=== PATIENT | male | born 1955 | race Caucasian/White ===

== ENCOUNTER 2022-05-23 05:11 | Day surgery (SDC) | payer MEDICARE, OTHER ==
[2022-05-16 16:33] LABS: BASOPHILS # (AUTO) 0.1 X10'3 (0-0.2); BASOPHILS % (AUTO) 0.8 % (0-1); EOSINOPHILS # (AUTO) 0.3 X10'3 (0-0.9); EOSINOPHILS % (AUTO) 5.4 % (0-6); LYMPHOCYTES # (AUTO) 1.9 X10'3 (1.1-4.8); MEAN CORPUSCULAR HEMOGLOBIN 30.2 PG (27.0-31.0); MEAN CORPUSCULAR HGB CONC 33.5 g/dL (33.0-36.5); MEAN CORPUSCULAR VOLUME 90.1 FL (78-98); MEAN PLATELET VOLUME 9.8 FL (7.4-10.4); MONOCYTES # (AUTO) 0.6 X10'3 (0-0.9); MONOCYTES % (AUTO) 9.5 % (2-12); NEUTROPHILS # (AUTO) 3.4 X10'3 (1.8-7.7); NEUTROPHILS % (AUTO) 54.3 % (42-75); PRE OP HEMOGLOBIN 16.4 g/dL (14.0-17.9); PRE OP PLATELET COUNT 228 X10'3 (140-440); RED BLOOD COUNT 5.44 X10'6 (4.70-6.10); RED CELL DISTRIBUTION WIDTH 13.7 % (11.5-14.5)
[2022-05-16 16:49] LABS: ALBUMIN 4.1 G/DL (3.4-5.0); ALBUMIN/GLOBULIN RATIO 1.1 (1.1-1.5); ALKALINE PHOSPHATASE 77 IU/L (46-116); BLOOD UREA NITROGEN 19 MG/DL (7-18); BUN/CREATININE RATIO 18.3 (5.4-32.0); CALCIUM 8.9 MG/DL (8.5-10.1); CHLORIDE 103 MMOL/L (99-107); CREATININE 1.04 MG/DL (0.60-1.10); PRE OP ALT 33 U/L (30-65); PRE OP ANION GAP 8 (8-16); PRE OP AST 18 U/L (10-37); PRE OP BILIRUB, TOTAL 0.2 MG/DL (0.0-1.0); PRE OP GLUCOSE 97 MG/DL (70-104); PRE OP SODIUM 139 MMOL/L (135-145); TOTAL CARBON DIOXIDE 28.4 MMOL/L (24-32); TOTAL PROTEIN 7.7 G/DL (6.4-8.2); eGFR 71 ML/MIN
[2022-05-23] VITALS (18 sets, daily range): BP systolic 90–140; BP diastolic 43–85
[~2022-05-23] VITALS: Ht 177.8 cm; Wt 80.5 kg
[~2022-05-23 05:11] MED LIST: IBUP-1985 PO
[2022-05-23] MEDS ORDERED: vancomycin 1,500 MG in NS 300ml IV soln IV ONE (05:30)
[2022-05-23] MEDS ORDERED: acetaminophen 325mg tablet PO ONE (05:30)
[2022-05-23] MEDS ORDERED: metoclopramide 5 mg/ml inj IV ONE (05:30)
[2022-05-23] MEDS ORDERED: oxyCODONE SR 10mg (sust. release) tab -2 tabs (20mg) PO ONE (05:30)
[2022-05-23] MEDS ORDERED: gabapentin 300mg capsule PO ONE (05:30)
[2022-05-23] MEDS ORDERED: tranexamic acid inj. 1,000 MG in normal saline IV soln 100ML IV ONE (05:30)
[2022-05-23] MEDS ORDERED: celeCOXIB 100mg capsule PO ONE (05:30)
[2022-05-23] MEDS ORDERED: famotidine 20mg tablet PO ONE (05:30)
--- NOTE | 2022-05-23 05:30 | NUR ---
PEDAL PULSES PRESENT AND MARKED. MUPIROCIN CREAM WAS NOT ORDERED FOR THIS PATIENT. PATIENT DID NOT WATCH THE VIDEO. EDUCATED PATIENT ON THE USE OF THE INCENTIVE SPIROMETER AND ITS IMPORTANCE.
[2022-05-23] MEDS: ringers solution, lacted 1,000 ML IV SCH ×2 (06:10→10:42)
[2022-05-23] MEDS ORDERED: ondansetron/PF 4mg/2ml inj IV PRN ×2 (06:25→07:15)
[2022-05-23] MEDS ORDERED: diphenhydrAMINE 25mg capsule PO PRN ×2 (06:25)
[2022-05-23] MEDS ORDERED: HYDROcodone/acetaminophen 10/325mg tab PO PRN (06:25)
[2022-05-23] MEDS ORDERED: naloxone 0.4 mg/ml inj IV PRN (06:25)
[2022-05-23] MEDS ORDERED: bisacodyl 10mg suppository rectal RC PRN (06:25)
[2022-05-23] MEDS ORDERED: magnesium hydroxide 30ml (MOM) UD suspension PO PRN (06:25)
[2022-05-23] MEDS ORDERED: HYDROmorphone 1 mg/ml syringe IV PRN (06:25)
[2022-05-23] MEDS ORDERED: HYDROmorphone inj. 0.5 MG/0.5 ML DISP.SYRIN IV PRN (06:25)
[2022-05-23] MEDS ORDERED: acetaminophen 325mg tablet PO PRN (06:25)
[2022-05-23] MEDS ORDERED: cefazolin/dext.iso 2gm/100ml BAG IV ONE (07:13)
[2022-05-23] MEDS ORDERED: ROPIVAcaine 0.2%/PF PUMP/bolus 545 ML ADDCANAL SCH (07:15)
[2022-05-23] MEDS ORDERED: ringers solution, lacted 1,000 ML IV SCH (07:15)
[2022-05-23] MEDS ORDERED: HYDROmorphone/PF 0.2 MG/ML SYRINGE IV PRN ×2 (07:15)
[2022-05-23] MEDS ORDERED: morphine 4 MG/ML inj SYRINge IV PRN (07:15)
[2022-05-23] MEDS ORDERED: MIDAZolam 1mg/ml 10ml vial ONE (07:15)
[2022-05-23] MEDS ORDERED: hydrALAZINE 20mg/ml inj. IV PRN (07:15)
[2022-05-23] MEDS ORDERED: ROPIVAcaine 0.2% (10 MG/5 ML) BOLUS INJECTION ADDCANAL PRN (07:15)
[2022-05-23] MEDS ORDERED: morphine 2 MG/ML inj. syringe IV PRN (07:15)
[2022-05-23] MEDS ORDERED: labetalol 20mg/4ml (5mg/ml) syringe IV PRN (07:15)
[2022-05-23] MEDS ORDERED: fentaNYL/PF 50MCG/1 ML 2ML syringe ONE (07:16)
[2022-05-23] MEDS ORDERED: vancomycin 1,000mg inj ONE (07:47)
[2022-05-23] MEDS ORDERED: cloNIDine hcl/PF 100mcg/ml inj ONE (07:48)
[2022-05-23] MEDS ORDERED: ROPIVAcaine 0.5% (5mg/ml) 30ml vial ONE ×2 (07:48→08:08)
[2022-05-23] MEDS ORDERED: epiNEPHrine 1 mg/ml inj ONE (07:48)
[2022-05-23] MEDS ORDERED: diphenhydrAMINE 50 mg/ml inj ONE (07:55)
[2022-05-23] MEDS ORDERED: dexamethasone sod phosphate 4mg/ml inj. ONE (08:09)
--- NOTE | 2022-05-23 09:15 | NUR ---
Received from OR via ,[facility] BED WITH [facility] accompanied by Anesthesiologist CURLY and report given by Anesthesiolgist. PATIENT SPINAL LEVEL AT L2 AT THIS TIME. DENIES PAIN. PAIENT WITH KNEE WRAP TO RIGHT LEG THAT IS CDI . POWDER PACK IS IN PLACE AND PATIENT WITH + POSTERIOR TIBIALIS PULSE ON DOPPLER. 10L MASK ON WITH 100% SATURATIONS. ANA LUISA VAC IN PLACE AND HOLDING SUCTION. NERVE BLOCK SITE IS PRESENT TO RIGHT UPPER THIGH. WILL CONNECT ONCE ON Q ARRIVES. 0AGAIN PATIENT DENIES PAIN. Addendum: 05/23/22 at 0942 by Jaime Lemus RN, RN Amended: Links added.
--- NOTE | 2022-05-23 10:04 | NUR ---
Patient in room . I have received report from Jaime and had the opportunity to ask questions and assume patient care.
--- NOTE | 2022-05-23 10:15 | NUR ---
REPORT GIVEN AND ALL QUESTIONS ANSWERED. PATIENT TRANSFERRED TO SURG/.U. LABELED BELONGINGS PRESENT AND DELIVERED TO ROOM. RN PRESENT ALL CRITERIA FOR TRANSFER BACK TO THE FLOOR HAS BEEN ACHIEVED. VSS. PAIN AT A TOLERABLE LEVEL. BED LOW, CALL LIGHT PRESENT AND 2 RAILS DOWN. RN AWARE THAT PATIENT HAS ARRIVED. TO ACCEPT CARE OF PATIENT. PRESENT AT BEDSIDE AND ONE BAG OF BELONGINGS LABELED AND AT BEDSIDE. Addendum: 05/23/22 at 1029 by Jaime Castellon - MATA RN Amended: Links added.
[2022-05-23] MEDS ORDERED: tranexamic acid inj. 800 MG in normal saline 100ml IV soln 92 ML IV ONE (12:00)
[2022-05-23] MEDS: potassium cl 20mEq in 1/2 NS 1,000 ML IV SCH ×2 (12:37→23:54)
[2022-05-23] MEDS ORDERED: vancomycin/NS 1 GM ADD-VANTAGE 250 ML IV SCH (16:00)
[2022-05-23] MEDS: ceFAZolin/D5W- 1GM premix 50 ML IV SCH ×2 (16:08→23:54)
--- NOTE | 2022-05-23 18:14 | NUR ---
Problems reprioritized. Patient report given, questions answered & plan of care reviewed with
--- NOTE | 2022-05-23 18:45 | NUR ---
Patient in room [facility]. I have received report from marcos AUGUST and had the opportunity to ask questions and assume patient care.
[2022-05-23] MEDS: HYDROcodone/acetaminophen 10/325mg tab PO PRN (19:52)
--- NOTE | 2022-05-23 19:58 | NUR ---
[place]2 given for pain 01/21.
[2022-05-23] MEDS: gabapentin 300mg capsule PO SCH (20:43)
[2022-05-23] MEDS: ascorbic acid 500mg tablet PO SCH (20:50)
[2022-05-23] MEDS ORDERED: sennosides 8.6mg tablet PO SCH (21:00)
[2022-05-24] MEDS: HYDROcodone/acetaminophen 10/325mg tab PO PRN ×3 (00:03→09:16)
[2022-05-24] MEDS: potassium cl 20mEq in 1/2 NS 1,000 ML IV SCH (04:00)
--- NOTE | 2022-05-24 05:57 | NUR ---
patient ambulated to BR MOM given on NOC shift no BM as yet. [place] given for pain 10/21. Report given to Emeli AUGUST
[2022-05-24 06:00] VITALS: BP 138/72
[2022-05-24 06:23] LABS: BASOPHILS # (AUTO) 0.1 X10'3 (0-0.2); BASOPHILS % (AUTO) 0.5 % (0-1); EOSINOPHILS # (AUTO) 0.1 X10'3 (0-0.9); EOSINOPHILS % (AUTO) 0.8 % (0-6); HEMATOCRIT 45.7 % (42.0-52.0); HEMOGLOBIN 15.1 g/dl (14.0-17.9); LYMPHOCYTES # (AUTO) 1.5 X10'3 (1.1-4.8); LYMPHOCYTES % (AUTO) 12.3 % (21-51); MEAN CORPUSCULAR HGB CONC 33.1 g/dL (33.0-36.5); MEAN CORPUSCULAR VOLUME 90.5 FL (78-98); MEAN PLATELET VOLUME 9.8 FL (7.4-10.4); MONOCYTES # (AUTO) 1.4 X10'3 (0-0.9); MONOCYTES % (AUTO) 11.4 % (2-12); PLATELET COUNT 186 X10'3 (140-440); RED BLOOD COUNT 5.05 X10'6 (4.70-6.10); RED CELL DISTRIBUTION WIDTH 13.6 % (11.5-14.5)
--- NOTE | 2022-05-24 06:35 | NUR ---
Patient in room [facility]. I have received report from Blanka and had the opportunity to ask questions and assume patient care.
[2022-05-24 06:44] LABS: ANION GAP 6 (8-16); CHLORIDE 105 MMOL/L (99-107); POTASSIUM 4.3 MMOL/L (3.5-5.1); SODIUM 137 MMOL/L (135-145); TOTAL CARBON DIOXIDE 25.6 MMOL/L (24-32)
[2022-05-24] MEDS ORDERED: multivitamins, therapeutics tablet PO SCH (08:00)
[2022-05-24] MEDS: gabapentin 300mg capsule PO SCH (08:18)
[2022-05-24] MEDS: ascorbic acid 500mg tablet PO SCH (08:19)
[2022-05-24] MEDS ORDERED: aspirin 325mg tablet PO SCH (08:30)
--- NOTE | 2022-05-24 09:39 | NUR ---
Pt s/p right TKA, pending discharge. Written protein education with RD contact information placed in patient's chart. Will remain available. Addendum: 05/24/22 at [address] Amended: Links added.
[2022-05-24] MEDS ORDERED: celeCOXIB 100mg capsule PO SCH (20:00)
== END 2022-05-24 11:12 | disposition home or self-care (01) ==
LOC: PAS 05:11 → SUR 3N 11:43 → PAS 05-24 11:12
PROVIDERS: ATTEND Orthopaedic Surgery
DX: M17.11 Unilateral primary osteoarthritis, right knee (principal); M21.161 Varus deformity, not elsewhere classified, right knee; G89.18 Other acute postprocedural pain; Z72.89 Other problems related to lifestyle; Z88.5 Allergy status to narcotic agent; Z88.0 Allergy status to penicillin; Z88.8 Allergy status to other drugs, medicaments and biological substances; Z98.890 Other specified postprocedural states; Z79.899 Other long term (current) drug therapy; Z79.82 Long term (current) use of aspirin
CPT/HCPCS: 27447; 36415; 64448; 73560; 80051; 80053; 82948; 85025; 86885; 86900; 86901; 87081; 93005; 97110; 97116; C1713; C1776; J0171; J0690; J0735; J1100; J1200; J2250; J2405; J2765; J2795; J3010; J3370; J3480; J3490; J7030; J7040; J7120; Z7506; Z7508; Z7512; 97530; A4215; A7000; G0378